=== PATIENT | female | born 1960 ===

== ENCOUNTER 2017-12-22 15:34 | Emergency (ER) | payer OTHER ==
[2017-12-22 16:11] VITALS: BP 116/79; PULSE 60; RESP 18; TEMP 98.6; O2SAT 97
--- NOTE | 2017-12-22 16:43 | RAD ---
Date of service: 12/22/2017 PROCEDURE: Radiographs of the Lumbar Spine. HISTORY: low back pain after injury COMPARISON: No prior. FINDINGS: BONES: Normal alignment. Grade 1 anterolisthesis of L4 on L5. No fracture. DISC SPACES: Multilevel disc space narrowing. OTHER FINDINGS: None. IMPRESSION: No acute fracture. Multilevel degenerative changes. Grade 1 anterolisthesis of L4 on L5.
--- NOTE | 2017-12-22 17:40 | C.PDOC ---
History Of Present Illness 57 year old female presents to the ED for evaluation of lower back pain which began earlier today. [place] the [place] was accidentally struck by a mall segway. She has not taken any medicine for her pain. Patient denies head injury, LOC, chest pain, shortness of breath, abdominal pain, headache or dizziness. Time Seen by Provider: 12/22/17 15:47 Chief Complaint (Nursing): Back Pain History Per: Patient History/Exam Limitations: no limitations Onset/Duration Of Symptoms: Hrs Current Symptoms Are (Timing): Still Present Quality Of Discomfort: "Pain" Previous Symptoms: Back Pain (lower) Associated Symptoms: denies: Incontinence, New Weakness, New Numbness Past Medical History Reviewed: Historical Data, Nursing Documentation, Vital Signs Vital Signs: Last Vital Signs Temp 98.6 F 12/22/17 15:53 Pulse 60 12/22/17 15:53 Resp 18 12/22/17 15:53 BP 116/79 12/22/17 15:53 Pulse Ox 97 12/22/17 23:16 - Medical History PMH: No Chronic Diseases Surgical History: No Surg Hx Family History: States: Unknown Family Hx - Social History Hx Alcohol Use: No Hx Substance Use: No Review Of Systems Constitutional: Negative for: Fever, Chills Cardiovascular: Negative for: Chest Pain Respiratory: Negative for: Shortness of Breath Gastrointestinal: Negative for: Abdominal Pain Musculoskeletal: Positive for: Back Pain (lower) Neurological: Negative for: Headache, Dizziness, Other (head injury/LOC) Physical Exam - Physical Exam Appears: Non-toxic, Other (in mild-moderate pain ) Skin: Normal Color, Warm, Dry, No Other (abrasions or lacerations ) Head: Atraumatic, Normacephalic Eye(s): bilateral: Normal Inspection Oral Mucosa: Moist Neck: No Midline Cervical Tenderness, No Paracervical Tenderness, Supple Chest: Symmetrical, No Deformity, No Tenderness Cardiovascular: Rhythm Regular, No Murmur Respiratory: Normal Breath Sounds, No Rales, No Rhonchi, No Wheezing Gastrointestinal/Abdominal: Soft, No Tenderness, No Guarding, No Rebound Back: Other (tenderness around L3-L5 region. no thoracic spine tenderness ) Extremity: Normal ROM, No Tenderness, Capillary Refill (less than 2 seconds ), No Deformity, No Swelling Neurological/Psych: Oriented x3, Normal Speech, Normal Cognition, Normal Motor, Normal Sensation ED Course And Treatment O2 Sat by Pulse Oximetry: 97 (on RA) Pulse Ox Interpretation: Normal - Other Rad lumbar spine XR X-Ray: Viewed By Me, Read By Radiologist Interpretation: PROCEDURE: Radiographs of the Lumbar Spine. HISTORY: low back pain after injury. COMPARISON: No prior. FINDINGS: BONES: Normal alignment. Grade 1 anterolisthesis of L4 on L5. No fracture. DISC SPACES: Multilevel disc space narrowing. OTHER FINDINGS: None. IMPRESSION: No acute fracture. Multilevel degenerative changes. Grade 1 anterolisthesis of L4 on L5. Progress Note: LS Spine XR ordered and reviewed. Flexeril PO and Toradol IM given. On re-exam, patient is resting comfortably, showing no signs of distress and reports an improvement in her pain. Patient is ambulatory in the ED with a steady gait and is stable for discharge. Patient is given Rx for Flexeril and Naproxen. She is advised to follow up with her PMD within 1-2 days for further evaluation and/or return to the ED if symptoms persist or worsen. Disposition Counseled Patient/Family Regarding: Diagnosis, Need For Followup, Rx Given - Disposition Referrals: [facility] [Outside] Disposition: HOME/ ROUTINE Disposition Time: 17:40 Condition: STABLE Additional Instructions: FOLLOW UP WITH YOUR DOCTOR/CLINIC IN 1-2 DAYS USE MEDICATIONS FOR PAIN NEEDED RETURN TO EMERGENCY ROOM IF SYMPTOMS WORSEN SEGUIMIENTO CON HOSKINS MDICO / CLNICA EN 1-2 SANDHU USE MEDICAMENTOS PARA EL DOLOR SEGN SEA NECESARIO REGRESE AL BALDO DE EMERGENCIA SI LOS SNTOMAS EMPEORAN Prescriptions: Cyclobenzaprine [Flexeril] 10 mg PO BID PRN #15 tab PRN Reason: Muscle Spasm Naproxen 375 mg PO BID PRN #20 tablet PRN Reason: pain Instructions: Low Back Pain (DC) Forms: [employer] ([place]), Work Excuse Print Language: GREEK - POA Present On Arrival: Falls Or Trauma - Clinical Impression Clinical Impression: Lumbar sprain - Scribe Statement The provider has reviewed the documentation as recorded by the Scribe (Cyndi Corbin) Provider Attestation: All medical record entries made by the Scribe were at my direction and personally dictated by me. I have reviewed the chart and agree that the record accurately reflects my personal performance of the history, physical exam, medical decision making, and the department course for this patient. I have also personally directed, reviewed, and agree with the discharge instructions and disposition.
[2017-12-22] MEDS ORDERED: Emtricitabine-Tenofovir 200 mg-300 mg Tab PO NR (17:45)
== END 2017-12-22 18:12 | disposition home or self-care (01) ==
LOC: C.ER 15:34
DX: S33.5XXA Sprain of ligaments of lumbar spine, initial encounter (principal); W22.8XXA Striking against or struck by other objects, initial encounter; Y92.59 Other trade areas as the place of occurrence of the external cause
CPT/HCPCS: 72100; 96372; 99283; J1885

== ENCOUNTER 2017-12-24 14:25 | Emergency (ER) | payer OTHER ==
[2017-12-24 14:31] VITALS: TEMP 98
--- NOTE | 2017-12-24 15:18 | C.PDOC ---
History Of Present Illness 57 year old female patient presents to the ER with complaints of lower back SI tenderness. Patient was seen on 12/22 with same complaint and LS spine was nml. Patient reports she has taken Flexeril and Naprosyn with minimal improvement. Time Seen by Provider: 12/24/17 15:02 Chief Complaint (Nursing): Back Pain History Per: Patient History/Exam Limitations: no limitations Onset/Duration Of Symptoms: Days Current Symptoms Are (Timing): Still Present Past Medical History Reviewed: Historical Data, Nursing Documentation, Vital Signs Vital Signs: Last Vital Signs Temp 98 F 12/24/17 14:29 Pulse 70 12/24/17 15:53 Resp 20 12/24/17 15:53 BP 129/87 12/24/17 15:53 Pulse Ox 100 12/24/17 16:23 Family History: States: Unknown Family Hx - Social History Hx Alcohol Use: No Hx Substance Use: No Review Of Systems Except As Marked, All Systems Reviewed And Found Negative. Musculoskeletal: Positive for: Back Pain (lower back SI tenderness) Physical Exam - Physical Exam Appears: Well, Non-toxic, No Acute Distress, Other (obese female) Skin: Normal Color, Warm, Dry Head: Atraumatic, Normacephalic Eye(s): bilateral: Normal Inspection, EOMI Neck: Normal ROM, Supple Chest: Symmetrical, No Deformity Cardiovascular: Rhythm Regular Respiratory: No Decreased Breath Sounds Back: No CVA Tenderness, No Vertebral Tenderness, No Paraspinal Tenderness, Other (tenderness to the SI region. No rash. ) Neurological/Psych: Oriented x3, Normal Speech, Normal Motor, Normal Sensation, Normal Reflexes Gait: Steady ED Course And Treatment O2 Sat by Pulse Oximetry: 100 (RA) Pulse Ox Interpretation: Normal Progress Note: Impression: 57 year old female patient with SI tenderness. Plan : -- Toradol. -- ice pack. Reassess: patient is resting comfortably. Tolerating PO. Patient advise to come back if condition worsen. Medical Decision Making Medical Decision Making: sacro-iliac tenderness, no spinal pain improved with ice and toradol IM increase naproxyn from 375 mg BID to 500 mg PO BID Disposition Doctor Will See Patient In The: Office Counseled Patient/Family Regarding: Studies Performed, Diagnosis - Disposition Referrals: [facility] [Outside] [facility] [Outside] [facility] [Outside] Disposition: HOME/ ROUTINE Disposition Time: 16:23 Condition: GOOD Additional Instructions: sigue hielo 1/2 hora por hora, nada caliente, encima de weller espalda Naproxyn 550 mg cada 12 horas Sigue en [facility] necessario. Instructions: Low Back Pain in Adults Forms: [employer] (Greek) Print Language: MONGOLIAN - Clinical Impression Clinical Impression: Low back strain - Scribe Statement The provider has reviewed the documentation as recorded by the Natashaibjimmie Sharif Do Provider Attestation: All medical record entries made by the Scribe were at my direction and personally dictated by me. I have reviewed the chart and agree that the record accurately reflects my personal performance of the history, physical exam, medical decision making, and the department course for this patient. I have also personally directed, reviewed, and agree with the discharge instructions and disposition.
[2017-12-24 15:54] VITALS: BP 129/87; PULSE 70; RESP 20
[2017-12-24 16:24] VITALS: O2SAT 100
== END 2017-12-24 16:27 | disposition home or self-care (01) ==
LOC: C.ER 14:25
DX: S39.012A Strain of muscle, fascia and tendon of lower back, initial encounter (principal); X58.XXXA Exposure to other specified factors, initial encounter; Y92.9 Unspecified place or not applicable
CPT/HCPCS: 96372; 99283; J1885